=== PATIENT | male | born 1960 | race Caucasian/White ===

== ENCOUNTER 2020-04-10 15:53 | Emergency (ER) | payer SELFPAY ==
[~2020-04-10] VITALS: Ht 175.2 cm; Wt 76.2 kg
[~2020-04-10 15:53] MED LIST: CIPRO500 MG PO; HYDROCODONE BIT1 T11 PO
[2020-04-10 17:05] LABS: BASO # 0.1 10*3/uL (0.0-0.1); BASO % 1.4 % (0.0-1.0); EOS # 0.2 10*3/uL (0.0-0.4); EOS % 2.7 % (1.0-4.0); HEMATOCRIT 45.3 % (42.0-52.0); LYMPH % 34.6 % (27.0-41.0); MEAN CELL VOLUME 95.2 fl (80.0-94.0); MEAN CORPUSCULAR HGB 30.3 pg (27.0-31.0); MEAN CORPUSCULAR HGB CONC 31.8 g/dl (33.0-37.0); MEAN PLATELET VOLUME 10.8 fl (9.6-12.3); MONO # 0.6 10*3/uL (0.1-1.0); MONO % 6.4 % (3.0-9.0); NEUT # 4.8 10*3/uL (2.3-7.9); NEUT % 54.7 % (47.0-73.0); PLATELET COUNT AUTOMATED 168 10*3/uL (130-400); RED BLOOD COUNT 4.76 10*6/uL (4.50-5.90); RED CELL DISTRI WIDTH 12.7 % (0-14.5); WHITE BLOOD COUNT 8.8 10*3/uL (4.8-10.8)
[2020-04-10 17:11] LABS: ACT PARTIAL THROMBO TIME 28.5 SECONDS (20.0-32.1); INTERNATIONAL NORM RATIO 0.9 (2.0-3.5)
[2020-04-10 17:15] LABS: ALBUMIN 3.4 gm/dl (3.1-4.5); ALKALINE PHOSPHATASE 73 U/L (45-117); BUN 18 mg/dl (7-24); CHLORIDE 106 mmol/L (98-107); CREATININE 1.18 mg/dL (0.70-1.30); SGOT/AST 21 IU/L (3-35); SODIUM 141 mmol/L (136-145); TOTAL PROTEIN 7.1 gm/dL (6.4-8.2)
[2020-04-10 17:16] LABS: SGPT/ALT 37 U/L (12-78); TROPONIN I < 0.015 ng/ml (<0.045)
[2020-04-10] MEDS ORDERED: GOOD NEIGHBOR M25 M1 PO (19:05)
== END 2020-04-10 19:20 | disposition home or self-care (01) ==
LOC: ED 15:53
PROVIDERS: Emergency Medicine
DX: H81.12 Benign paroxysmal vertigo, left ear (principal); H91.92 Unspecified hearing loss, left ear

== ENCOUNTER 2020-08-22 11:10 | Emergency (ER) | payer SELFPAY ==
[~2020-08-22] VITALS: Ht 175.2 cm; Wt 89.1 kg
[~2020-08-22 11:10] MED LIST changes: +GOOD NEIGHBOR M25 M1 PO
[2020-08-22 12:20] LABS: HEMATOCRIT 46.7 % (42.0-52.0); MEAN CELL VOLUME 96.1 fl (80.0-94.0); MEAN CORPUSCULAR HGB CONC 31.3 g/dl (33.0-37.0); MEAN PLATELET VOLUME 10.6 fl (9.6-12.3); PLATELET COUNT AUTOMATED 178 10*3/uL (130-400); RED BLOOD COUNT 4.86 10*6/uL (4.50-5.90); RED CELL DISTRI WIDTH 13.2 % (0-14.5); WHITE BLOOD COUNT 10.9 10*3/uL (4.8-10.8)
[2020-08-22 12:33] LABS: ALBUMIN 3.5 gm/dl (3.1-4.5); ALKALINE PHOSPHATASE 84 U/L (45-117); BASOPHILS 2 % (0-1); BUN 10 mg/dl (7-24); CHLORIDE 107 mmol/L (98-107); CREATININE 1.07 mg/dL (0.70-1.30); PLATELET SUFFICIENCY NORMAL (NORMAL); SGOT/AST 17 IU/L (3-35); SGPT/ALT 31 U/L (12-78); SODIUM 141 mmol/L (136-145); TOTAL CELLS COUNTED 100 #CELLS; TOTAL PROTEIN 7.2 gm/dL (6.4-8.2)
[2020-08-22 13:32] LABS: BODY FLUID WBC 643 /uL
[2020-08-22] MEDS ORDERED: CEPHALEXIN500 M1 PO (13:55)
[2020-08-22] MEDS ORDERED: NORVASC5 MG PO (13:55)
[2020-08-22 14:40] LABS: BF LYMPHOCYTES 15 %; BF MONOCYTES 74 %; BF NEUTROPHILS 11 %
== END 2020-08-22 14:02 | disposition home or self-care (01) ==
LOC: ED 11:10
PROVIDERS: Student in an Organized Health Care Education/Training Program
DX: M71.9 Bursopathy, unspecified (principal); Z79.899 Other long term (current) drug therapy

== ENCOUNTER 2020-12-09 14:54 | Emergency (ER) | payer BC ==
[~2020-12-09] VITALS: Ht 175.2 cm; Wt 81.6 kg
[~2020-12-09 14:54] MED LIST changes: +ASPIRIN ADULT L81 M2 PO; +ATARAX,VISTARIL50 MG PO; +AUGMENTIN 875875 MG PO; +CEPHALEXIN500 M1 PO; +NORVASC5 MG PO; +PANTOPRAZOLE SO40 MG PO; +RISPERIDONE0.5 MG PO; +VITAMIN D3125 MC1 PO
== END 2020-12-09 19:00 | disposition home or self-care (01) ==
LOC: ED 14:54
DX: T88.9XXA Complication of surgical and medical care, unspecified, initial encounter (principal); Y92.89 Other specified places as the place of occurrence of the external cause